=== PATIENT | female | born 1985 | race Two or more races ===

== ENCOUNTER 2017-06-16 20:40 | Emergency (ER) | payer MEDICARE ==
[~2017-06-16] VITALS: Ht 165.1 cm; Wt 130.0 kg
[2017-06-16] MEDS ORDERED: ONDANSETRON 2MG/ML, 2ML IVPush ONE (21:00)
[2017-06-16] MEDS ORDERED: SODIUM CHLORIDE 0.9% 1,000ML IVBOLUS ONE (21:00)
[2017-06-16] MEDS ORDERED: FAMOTIDINE 20 MG/2 ML IVP ONE (21:00)
[2017-06-16 21:31] LABS: BASOPHILS # (AUTO) 0.01 x10^3/uL (0-0.1); BASOPHILS % (AUTO) 0 % (0-1); EOSINOPHILS % (AUTO) 1 % (1-7); LYMPHOCYTES % (AUTO) 16 % (22-44); MD NO; MEAN CORPUSCULAR HEMOGLOBIN 29.8 pg (27.0-34.8); MEAN CORPUSCULAR HGB CONC 33.2 g/dL (32.4-35.8); MEAN CORPUSCULAR VOLUME 89.7 fL (80-100); MEAN PLATELET VOLUME 8.1 fL (7.4-10.4); MONOCYTES # (AUTO) 0.07 x10^3/uL (0.2-0.8); MONOCYTES % (AUTO) 1 % (2-9); NEUTROPHILS # (AUTO) 8.89 x10^3/uL (1.8-6.8); NEUTROPHILS % (AUTO) 83 % (42-75); PLATELET COUNT 281 x10^3/uL (130-400); RED BLOOD COUNT 5.24 x10^6/uL (3.82-5.3); RED CELL DISTRIBUTION WIDTH 13.6 % (9.6-15.2)
[2017-06-16 21:39] LABS: ALANINE AMINOTRANSFERASE 44 U/L (12-78); ALBUMIN 4.3 g/dL (3.4-5.0); ANION GAP 10 mmol/L (5-15); CHLORIDE 107 mmol/L (98-107); CREATININE 1.16 mg/dL (0.55-1.02)
[2017-06-16 21:43] LABS: ALKALINE PHOSPHATASE 85 U/L (45-117); BILIRUBIN,TOTAL 0.3 mg/dL (0.2-1.0)
[2017-06-16] MEDS ORDERED: SODIUM CHLORIDE 0.9% 1,000 ML IV ONE (21:57)
[2017-06-16] MEDS ORDERED: HYDROmorphone 1 MG/ML, 1ML IVPush PRN (22:00)
[2017-06-16] MEDS ORDERED: HYDROmorphone 2 MG/ML, 1ML ONE (22:09)
[2017-06-16] MEDS ORDERED: ONDANSETRON 2MG/ML, 2ML ONE ×2 (22:09→23:37)
[2017-06-16] MEDS ORDERED: FAMOTIDINE 20 MG/2 ML ONE (22:10)
[2017-06-16] MEDS ORDERED: OMNIPAQUE 350 MG/ML, 150 ML BOTTLE ONE (22:32)
[2017-06-16 22:39] LABS: CULTURE INDICATED? YES; MICROSCOPIC INDICATED
[2017-06-16] MEDS ORDERED: PROMETHAZINE 25 MG/ML, 1ML ONE (22:50)
[2017-06-16] MEDS ORDERED: PROMETHAZINE 25 MG/ML, 1ML IM ONE (23:00)
[2017-06-16] MEDS ORDERED: HYDROmorphone 2 MG/ML, 1ML IVPush PRN (23:30)
[2017-06-16 23:56] VITALS: BP 140/79
[2017-06-17] MEDS ORDERED: ONDANSETRON 2MG/ML, 2ML IVPush ONE
== END 2017-06-17 00:14 | disposition home or self-care (01) ==
LOC: ED 23:59
DX: R10.13 Epigastric pain (principal); R11.2 Nausea with vomiting, unspecified; Z90.49 Acquired absence of other specified parts of digestive tract; F17.200 Nicotine dependence, unspecified, uncomplicated
CPT/HCPCS: 36415; 74177; 80053; 81001; 83690; 84703; 85025; 87086; 96361; 96372; 96374; 96375; 96376; 99285; J1170; J2405; J2550; J7030; Q9967; S0028